=== PATIENT | male | born 1940 | race Caucasian/White ===

== ENCOUNTER → 2017-01-27 | Outpatient (CLI) | payer BC ==
[~2017-01-27] MED LIST: GADOBUTROL 10 ML VIAL IVP ONE
[2017-01-27 19:32] LABS: CREATININE 1.4 mg/dL (0.7-1.3)
== END ==
LOC: FIMAGING 18:32
DX: H53.2 Diplopia (principal); G93.9 Disorder of brain, unspecified; Z98.42 Cataract extraction status, left eye
CPT/HCPCS: A9585

== ENCOUNTER → 2017-04-28 | Outpatient (CLI) | payer BC ==
[~2017-04-28] MED LIST changes: -GADOBUTROL 10 ML VIAL IVP ONE; +IOPAMIDOL (ISOVUE-300) 100 ML BTL ONE
== END ==
LOC: FIMAGING 11:59
PROVIDERS: ATTEND Internal Medicine
DX: K57.90 Diverticulosis of intestine, part unspecified, without perforation or abscess without bleeding (principal)
CPT/HCPCS: Q9967

== ENCOUNTER → 2018-08-28 | Outpatient (CLI) | payer BC | LOC: FCPNEURO 23:47 | PROVIDERS: ATTEND Internal Medicine Sleep Medicine | DX: G47.33 Obstructive sleep apnea (adult) (pediatric) (principal); G47.34 Idiopathic sleep related nonobstructive alveolar hypoventilation ==